=== PATIENT | male | born 1975 | race Caucasian/White ===

== ENCOUNTER 2016-08-18 08:22 | Emergency (ER) | payer BC, OTHER ==
[~2016-08-18] VITALS: Ht 180.3 cm; Wt 100.1 kg
[~2016-08-18 08:22] MED LIST: MULT-506 PO
[2016-08-18 08:27] VITALS: TEMP 36.5; Ht 180.3 cm; Wt 100.1 kg
[2016-08-18 08:46] VITALS: O2SAT 98
[2016-08-18] MEDS ORDERED: SODIUM CHLORIDE 0.9% 1000ML 1,000 ML IV STA (09:01)
--- NOTE | 2016-08-18 09:10 | EMERGENCY ROOM VISIT NOTE ---
History First contact with patient: 08:37 Chief Complaint: ILLNESS Stated Complaint: SEPTIC History of Present Illness The patient is a 41 year old male who presents to the Emergency Room with complaints of feeling dizzy and confused. The patient states that this started this morning. The patient states he was admitted to [facility] a few months ago for sepsis secondary to dental infection. He states he feels the same. The patient never followed up with a dentist. The patient denies any true dental pain. He denies any headache, neck pain, neck stiffness. He states he feels as though he has a fever but did not take his temperature. He denies any coughing, chest pain, trouble breathing. He denies any abdominal pain, nausea or vomiting. He denies any urinary symptoms. He denies any numbness, tingling or weakness in the extremities. The patient drinks alcohol heavily, at least a 12 pack every day and admits to drinking last night and this morning but does not feel he drank more than his usual. Review of Systems A 10 system review of systems was completed with positives and pertinent negatives listed in the HPI. Past Medical/Surgical History patient denies Social History Smoking Status: Current Every Day Smoker Alcohol Use: occasionally Current/Historical Medications Scheduled Clindamycin Hcl (Cleocin), 300 MG PO QID Methylphenidate Hcl (Concerta), Unknown Dose PO DAILY Multiple Vitamins W/ Minerals (Centrum), 1 TAB PO DAILY Pantoprazole (Protonix), 40 MG PO DAILY Allergies Coded Allergies: Aspirin (Verified Allergy, Severe, SEIZURE, 03/08/11) Erythromycin (Verified Allergy, Mild, HIVES, 03/08/11) Penicillins (Verified Allergy, Mild, HIVES (TOLERATES ROCEPHIN), 03/08/11) Macrolides (Verified Adverse Reaction, Mild, MAKES ME VIOLENT, 03/08/11) Physical Exam Vital Signs Date Time Temp Pulse Resp B/P Pulse Ox O2 Delivery O2 Flow Rate FiO2 08/18/16 11:41 86 16 127/81 08/18/16 11:30 80 08/18/16 10:41 76 21 132/78 08/18/16 08:51 80 08/18/16 08:46 84 21 123/85 98 Room Air 08/18/16 08:27 36.5 84 18 137/86 100 Room Air Physical Exam VITALS: Vitals are noted on the nurse's note and reviewed by myself. Vital signs stable. The patient is afebrile. GENERAL: This is a 41-year-old male, in no acute distress, nondiaphoretic, well- developed well-nourished. SKIN: The skin was without rashes, erythema, edema, or bruising. There is no tenting of the skin. Capillary reflex less than 2 seconds. HEAD: Normocephalic atraumatic. EARS: External auditory canals clear, tympanic membranes pearly powell without erythema or effusion bilaterally. EYES: Pupils equal round and reactive to light and accommodation. Conjunctivae without injection, sclerae without icterus. Extraocular movements intact. NOSE: Patent, turbinates without inflammation or discharge. No sinus tenderness. MOUTH: Mucous membranes moist. Tonsils are not enlarged. Pharynx without erythema or exudate. Uvula midline. Airway patent. Tongue does not deviate. NECK: Supple without nuchal rigidity. No lymphadenopathy. No thyromegaly. Cervical spine is nontender. No JVD. HEART: Regular rate and rhythm without murmurs gallops or rubs. LUNGS: Clear to auscultation bilaterally without wheezes, rales or rhonchi. No retractions or accessory muscle use. ABDOMEN: Positive bowel sounds x 4. Soft, nontender, without masses or organomegaly. Marroquin sign negative. MUSCULOSKELETAL: No muscle atrophy, erythema, or edema noted. Full range of motion in all extremities. Normal gait. Strength 5/5 throughout. NEURO: Patient was alert and oriented to person place and time. No focal neurological deficits. Medical Decision & Procedures ER Provider Diagnostic Interpretation: CHEST ONE VIEW PORTABLE CLINICAL HISTORY: confusion COMPARISON STUDY: No previous studies for comparison. FINDINGS: The cardiac and mediastinal contours are normal. There is no evidence of focal pulmonary consolidation. There is no evidence of failure. No pleural effusions are visualized.[There are minimal left basilar atelectatic changes. IMPRESSION: No active disease in the chest. Laboratory Results 08/18/16 09:44 Red Blood Count 4.79, Mean Corpuscular Volume 95.4, Mean Corpuscular Hemoglobin 31.7, Mean Corpuscular Hemoglobin Concent 33.3, Mean Platelet Volume 10.0, Neutrophils (%) (Auto) 71.6, Lymphocytes (%) (Auto) 18.8, Monocytes (%) (Auto) 6.6, Eosinophils (%) (Auto) 2.4, Basophils (%) (Auto) 0.3, Neutrophils # (Auto) 8.85, Lymphocytes # (Auto) 2.33, Monocytes # (Auto) 0.82, Eosinophils # (Auto) 0.30, Basophils # (Auto) 0.04 08/18/16 09:44 Test 08/18/16 09:44 08/18/16 09:45 White Blood Count 12.38 K/uL (4.8-10.8) Red Blood Count 4.79 M/uL (4.7-6.1) Hemoglobin 15.2 g/dL (14.0-18.0) Hematocrit 45.7 % (42-52) Mean Corpuscular Volume 95.4 fL (80-100) Mean Corpuscular Hemoglobin 31.7 pg (25-34) Mean Corpuscular Hemoglobin Concent 33.3 g/dl (32-36) Platelet Count 292 K/uL (130-400) Mean Platelet Volume 10.0 fL (7.4-10.4) Neutrophils (%) (Auto) 71.6 % Lymphocytes (%) (Auto) 18.8 % Monocytes (%) (Auto) 6.6 % Eosinophils (%) (Auto) 2.4 % Basophils (%) (Auto) 0.3 % Neutrophils # (Auto) 8.85 K/uL (1.4-6.5) Lymphocytes # (Auto) 2.33 K/uL (1.2-3.4) Monocytes # (Auto) 0.82 K/uL (0.11-0.59) Eosinophils # (Auto) 0.30 K/uL (0-0.5) Basophils # (Auto) 0.04 K/uL (0-0.2) RDW Standard Deviation 49.6 fL (36.4-46.3) RDW Coefficient of Variation 14.0 % (11.5-14.5) Immature Granulocyte % (Auto) 0.3 % Immature Granulocyte # (Auto) 0.04 K/uL (0.00-0.02) Prothrombin Time 10.3 SECONDS (9.0-12.0) Prothromb Time International Ratio 1.0 (0.9-1.1) Activated Partial Thromboplast Time 25.3 SECONDS (21.0-31.0) Partial Thromboplastin Ratio 1.0 Anion Gap 5.0 mmol/L (3-11) Est Creatinine Clear Calc Drug Dose 134.7 ml/min Estimated GFR () 124.2 Estimated GFR (Non- 107.2 BUN/Creatinine Ratio 19.0 (10-20) Calcium Level 8.9 mg/dl (8.5-10.1) Magnesium Level 2.4 mg/dl (1.8-2.4) Total Bilirubin 0.3 mg/dl (0.2-1) Aspartate Amino Transf (AST/SGOT) 20 U/L (15-37) Alanine Aminotransferase (ALT/SGPT) 38 U/L (12-78) Alkaline Phosphatase 68 U/L (45-117) Total Creatine Kinase 337 U/L (39-308) Troponin I < 0.015 ng/ml (0-0.045) Total Protein 7.9 gm/dl (6.4-8.2) Albumin 4.3 gm/dl (3.4-5.0) Globulin 3.6 gm/dl (2.5-4.0) Albumin/Globulin Ratio 1.2 (0.9-2) Ethyl Alcohol mg/dL < 3.0 mg/dl (0-3) Lactic Acid Level 1.3 mmol/L (0.4-2.0) Ammonia < 10.0 umol/L (11-32) Medications Administered Medications (Trade) Dose Ordered Sig/Dru Route Start Time Stop Time Status Last Admin Dose Admin Sodium Chloride (Nss 1000ml) 1,000 ml @ 999 mls/hr Q1H1M STAT IV 08/18/16 09:01 08/18/16 10:01 DC 08/18/16 10:39 999 MLS/HR Procedure The patient was monitored on a phototypesetting equipment monitor. They maintained a normal sinus rhythm without ectopy. ECG Indication: altered mental status Rate (beats per minute): 84 Rhythm: normal sinus Findings: no acute ischemic change Comparison ECG Date: no prior available ED Course The patient was seen and examined. Previous visits were reviewed. The patient is afebrile. He does have a leukocytosis of 12.38. He does not have any significant electrolyte abnormality. Lactic acid was 1.3. Ammonia was not elevated. CPK was slightly elevated at 337. Troponin was not elevated. INR was 1.0. Alcohol was negative. The patient was hydrated with normal saline the patient presents to the emergency department with very vague complaints. He reports feeling slightly confused. He reports feeling dizzy and thinks that he has a dental infection and possibly sepsis again. He is afebrile. He has not taken any antipyretics. The patient does not have any significant facial swelling. The patient does not have any headache, neck pain, neck stiffness to suggest meningitis. The patient does not have any symptoms of chest pain, cough , trouble breathing, abdominal pain, nausea or vomiting. He does not have any symptoms to suggest urinary tract infection. I attempted to get the documentation from the patient's admission at [facility] a few months ago. The patient stated he was transferred from [facility].The patient initially signed the consent to get his information but they then stated that the records included psychiatric, drug and alcohol information. The patient then refused to sign the consent to get the records. After discussion of the patient's family member, they state that he was transferred due to psychiatric reasons and not because of sepsis and illness. At this time , the patient will be placed on clindamycin for potential dental infection. He has tolerated it well in the past. He should return with any fevers, neck pain , neck stiffness generalized worsening or changing symptoms. Otherwise, he should follow-up with a dentist for definitive management. The case was discussed with Dr. Gomez who agrees with the assessment and plan. Medical Decision DIFFERENTIAL DIAGNOSIS: Aortic dissection, myocarditis, pericarditis, cervical disc disease, costochondritis, herpes zoster, rib fracture, pleuritis, pneumonia , pulmonary embolus, tension pneumothorax, anxiety disorder, somatoform disorder , choledocholithiasis, status, esophagitis, esophageal spasm, esophageal reflux , esophageal rupture, pancreatitis, peptic ulcer disease, cardiac ischemia, ST elevation [place], acute coronary syndrome, arrhythmia, coronary artery vasospasm. vavular heart disease, coronary artery disease, meningitis, alkaline intoxication, encephalopathy, dental pain, dental infection, dental abscess, PTSD, anxiety/depression among others. Impression Primary Impression: Dental infection Departure Information Dispostion Home / Self-Care Condition GOOD Prescriptions Clindamycin Hcl (CLEOCIN) 300 Mg Cap 300 MG PO QID for 7 Days, #28 CAP Prov: Jessica Francois PA-C 08/18/16 Referrals No Doctor, Assigned (PCP) Patient Instructions Dental Abscess, My [facility] Additional Instructions Clindamycin every 6 hours for 7 days Contact a dentist to schedule a follow up appointment for definitive management Return with worsening symptoms, fevers, vomiting
--- NOTE | 2016-08-18 09:26 | DIAGNOSTIC IMAGING REPORT ---
CHEST ONE VIEW PORTABLE CLINICAL HISTORY: confusion COMPARISON STUDY: No previous studies for comparison. FINDINGS: The cardiac and mediastinal contours are normal. There is no evidence of focal pulmonary consolidation. There is no evidence of failure. No pleural effusions are visualized.[There are minimal left basilar atelectatic changes. IMPRESSION: No active disease in the chest. Electronically signed by: John Dumont M.D. 08/18/2016 9:24 AM Dictated Date/Time: 08/18/2016 9:24 AM
[2016-08-18 10:11] LABS: PROTHROMBIN TIME (PATIENT) 10.3 SECONDS (9.0-12.0)
[2016-08-18 10:17] LABS: BASO % 0.3 %; BASO ABS # 0.04 K/uL (0-0.2); COMPLETE YES; EOS % 2.4 %; HEMATOCRIT 45.7 % (42-52); IG% 0.3 %; LYMPH % 18.8 %; LYMPH ABS # 2.33 K/uL (1.2-3.4); MEAN CELL VOLUME 95.4 fL (80-100); MEAN CORPUSCULAR HEMOGLOBIN 31.7 pg (25-34); MEAN CORPUSCULAR HGB CONC 33.3 g/dl (32-36); MONO % 6.6 %; NEUT % 71.6 %; PLATELET COUNT 292 K/uL (130-400); RED BLOOD COUNT 4.79 M/uL (4.7-6.1); WHITE BLOOD COUNT 12.38 K/uL (4.8-10.8)
[2016-08-18 10:28] LABS: ALT/SGPT 38 U/L (12-78); AST/SGOT 20 U/L (15-37); BLOOD UREA NITROGEN 17 mg/dl (7-18); CALCIUM 8.9 mg/dl (8.5-10.1); CARBON DIOXIDE 30 mmol/L (21-32); CHLORIDE 101 mmol/L (98-107); CREATININE 0.87 mg/dl (0.60-1.40); GLUCOSE 101 mg/dl (70-99); MAGNESIUM 2.4 mg/dl (1.8-2.4); POTASSIUM 3.5 mmol/L (3.5-5.1); SODIUM 136 mmol/L (136-145)
[2016-08-18 10:33] LABS: ALB/GLOB RATIO 1.2 (0.9-2); ALKALINE PHOSPHATASE 68 U/L (45-117)
[2016-08-18] MEDS ORDERED: PANT40TA PO (11:06)
[2016-08-18] MEDS ORDERED: AMPH30CA3 PO (11:06)
[2016-08-18] MEDS ORDERED: MULTTAB5 PO (11:06)
[2016-08-18] MEDS ORDERED: CNC/18 PO (11:09)
[2016-08-18] MEDS ORDERED: CLIN300C2 PO (11:25)
[2016-08-18 11:41] VITALS: BP 127/81; PULSE 86
== END 2016-08-18 11:53 | disposition home or self-care (01) ==
LOC: C.EDB 08:24
DX: K04.7 Periapical abscess without sinus (principal); F10.10 Alcohol abuse, uncomplicated; F17.210 Nicotine dependence, cigarettes, uncomplicated; Z79.899 Other long term (current) drug therapy